=== PATIENT | male | born 1975 | race Hispanic/Latino ===

== ENCOUNTER → 2024-07-23 | Day surgery (SDC) | payer BC ==
[~2024-07-23] MED LIST: LIDOCAINE HCL 2% LOCAL INJ 5 ML SDV VIAL INJ ONE; MIDAZOLAM HCL 2 MG/2 ML VIAL ONE; PROPOFOL IV EMULSION 10 MG/ML 20 ML VIAL IV ONE; STOOL SOFTENER PO; TYLENOL325 MG PO
[2024-07-23] MEDS: LACTATED RINGER'S 1,000 ML ONE (11:14)
[2024-07-23 12:52] VITALS: TEMP 97.6
[2024-07-23 13:20] VITALS: BP 108/64; PULSE 62; RESP 16; O2SAT 98
== END | disposition home or self-care (01) ==
LOC: OR 09:22
PROVIDERS: ATTEND Internal Medicine Gastroenterology
DX: Z12.11 Encounter for screening for malignant neoplasm of colon (principal); D12.4 Benign neoplasm of descending colon; K64.1 Second degree hemorrhoids; K59.00 Constipation, unspecified; K62.5 Hemorrhage of anus and rectum; Z98.0 Intestinal bypass and anastomosis status; Z90.49 Acquired absence of other specified parts of digestive tract; Z01.810 Encounter for preprocedural cardiovascular examination; Z80.0 Family history of malignant neoplasm of digestive organs
CPT/HCPCS: 45384; 93005; J2001; J2250; J2704; J7121